=== PATIENT | female | born 1975 | race Hispanic/Latino ===

== ENCOUNTER 2018-01-01 17:49 | Emergency (ER) | payer SELFPAY ==
[2018-01-01] MEDS ORDERED: KETOROLAC TROMETHAMINE 30MG/ML ONE (19:19)
[2018-01-01] MEDS ORDERED: DEXAMETHASONE SOD PHOSPHATE 10MG/ML 1ML VIAL ONE (19:19)
[2018-01-01 19:21] LABS: APPEARANCE,URINE Clear (CLEAR); BILIRUBIN,URINE Negative (NEGATIVE); COLOR,URINE Yellow (YELLOW); GLUCOSE, URINE (UA) Negative (NEGATIVE); KETONES,URINE Negative (NEGATIVE); LEUKOCYTE ESTERASE ,URINE Negative (NEGATIVE); NITRATE,URINE Negative (NEGATIVE); OCCULT BLOOD,URINE Negative (NEGATIVE); PH,URINE 6.5 (5.0-8.0); PROTEIN,URINE Negative (NEGATIVE); UROBILINOGEN,URINE 0.2 mg/dL (0.2-1.0)
[2018-01-01 19:28] LABS: HCG,QUAL RESULT NEGATIVE (NEGATIVE)
[2018-01-01] MEDS ORDERED: MORPHINE SULFATE 4 MG/1ML SYG ONE (20:08)
[2018-01-01] MEDS ORDERED: ONDANSETRON HCL 4 MG/2 ML VIAL ONE (20:08)
[2018-01-01] MEDS ORDERED: ORPHENADRINE CITRATE 30 MG/ML ML ONE (20:08)
== END 2018-01-01 21:35 | disposition home or self-care (01) ==
LOC: EDH 17:49
DX: M54.32 Sciatica, left side (principal)
CPT/HCPCS: 72100; 81003; 81025; 96374; 96375; 99285; J1100; J1885; J2270; J2360; J2405